=== PATIENT | male | born 1950 | race Caucasian/White ===

== ENCOUNTER 2016-04-20 14:02 | Inpatient (IN) | payer MEDICARE ==
--- NOTE | ~2016-04-20 | CR63 ---
[facility] A Service of [facility] & [facility] RADIOLOGY TEXT RESULTS PATIENT: REZA DIAS LOCATION: [facility] : 50 UNIT #: [id number] AGE: [address]: Jacinta Mckeon MD SEX: M ORDER DR: [id number] [facility] [address] [facility]. [place], [place] [address] [id number] MR#: [id number] Acc #: [id number] NAME: REZA DIAS : 1950 SEX: M STUDY DATE/TIME: 04/20/2016 13:10 UNIT: [facility] ROOM: STUDY DESCRIPTION: CR Chest 2 View Attending Physician: Jacinta Mckeon M.D. Ordering Physician: Miguel Barrios M.D. Primary Care Physician: Elena Graf M.D. MEDICAL IMAGING REPORT This report is preliminary unless electronic signature is present EXAM PA and lateral chest performed on 04/20/2016 HISTORY 65-year-old male with shortness of breath. Patient's symptoms started 3 days ago. FINDINGS The heart is not enlarged. The lungs are clear. No pleural effusion or pneumothorax is identified. In comparison to the previous exam of 04/04/2010 there has been no change. IMPRESSION No acute pulmonary disease. Dictated by... Rubin Manning M.D. THIS IS AN ELECTRONICALLY VERIFIED REPORT Rubin Manning M.D. at 04/20/2016 4:52 PM Brendan TD: 04/20/2016 15:45 JOB #: [id number] MEDICAL IMAGING REPORT COPY
--- NOTE | ~2016-04-20 | OR ---
Unit #: [id number] #: [id number] Patient: REZA DIAS [id number] [address] [place], [place] [address] [id number] I MR#: [id number] NAME: REZA DIAS ROOM: 212 Date of Procedure: 04/22/2016 Admission Date: 04/20/2016 Surgeon: Emile Dobbs Jr., M.D. : 1950 Attending Physician: Bobo Chavez M.D. Primary Care Physician: Elena Grfa M.D. OPERATIVE REPORT INDICATIONS FOR PROCEDURE The patient is a 65-year-old white male, who was admitted with anemia and complaining of some shortness of air. He has had a known past history for gastric ulcer disease. He has had several gastric procedures in the past including a partial gastrectomy and vagotomy. He had a scope approximately year ago, which revealed a marginal ulcer and was treated medically and seemed to do well up until now. He has had some intermittent spells of nausea, vomiting, and belching with reflux symptoms. He is brought to the endoscopy suite at this time after prep on the floor for EGD colonoscopy. PREOPERATIVE DIAGNOSIS Anemia secondary to gastrointestinal bleeding with possible recurrent marginal ulcer. POSTOPERATIVE DIAGNOSES On upper endoscopy, the patient was noted to have 1+ distal esophagitis without stenosis, mild gastritis with a marginal ulcer at the gastrojejunostomy without obstruction, and retained food particles in the stomach indicating gastroparesis or possibly some partial obstruction related to his ulcer. Colonoscopy to the cecum revealed evidence of diverticulosis of the left colon, but no other abnormalities. ANESTHESIA Conscious sedation with 12 mg of Versed being used as well as 125 mcg of fentanyl IV slowly during the procedure. PROCEDURE PERFORMED Flexible fiberoptic esophagogastrojejunoscopy with colonoscopy to the cecum. DESCRIPTION OF PROCEDURE The patient was positioned in Campbell position with left side down. After being given IV Versed and fentanyl with a total of 12 mg Versed and 125 mcg of fentanyl being given. The Olympus XQ scope was passed through the proximal esophagus. Entire esophagus was examined. Proximal two-thirds appeared normal in the area of the distal esophagus. There were some small ulcerations compatible with 1+ ulcerative distal esophagitis without stenosis. The scope was advanced through the GE junction into the cardia, and down the area of his gastrojejunostomy. There was retained food particles within the proximal portion of the stomach and some mild gastritis and evidence of a persistent marginal ulcer without significant Unit #: [id number] #: [id number] Patient: REZA DIAS obstruction though of his gastrojejunostomy. The scope was then advanced down distally in the jejunum, where there was no evidence of any abnormalities. The scope was then slowly removed. The patient repositioned for colonoscopy. Digital rectal examination was performed, which revealed no palpable mass or tenderness. No blood or stool within the rectal ampulla. Prostate was 2+ enlarged and nontender and not nodular. The Olympus colonoscope was advanced through the anal canal up the rectum and retroflexed down to the area of the anorectal region. There was no evidence of any fissures. No significant internal hemorrhoids. The scope was then straightened and advanced up the rectosigmoid, in the sigmoid and descending colon areas, around the splenic flexure and the transverse colon, around the hepatic flexure and ascending colon, down in the area of the cecum. The light from the tip of the scope could be seen transilluminating through right lower quadrant abdominal wall area. Multiple attempts advancing the scope up the distal ileum were unsuccessful. The scope was slowly removed. There were no tumors, polyps, cancer, or AVMs. No evidence of any colitis or diverticulitis. There were multiple diverticula in the left colon. There was no evidence of any narrowing or obstruction and no bleeding sources except the diverticulosis. The scope was removed. The patient tolerated the procedure well and discharged back to floor in satisfactory condition. Dictated by... Emile Dobbs Jr., M.D. JMB/barbra TD: 04/22/2016 14:30 JOB #: [id number] CC: . OPERATIVE REPORT X Emile Dobbs MD X PROCEDURE OPERATIVE NOTE
--- NOTE | ~2016-04-20 | US38 ---
[facility] A Service of [facility] / [facility] RADIOLOGY TEXT RESULTS PATIENT: REZA DIAS LOCATION: [facility] : 50 UNIT #: [id number] AGE: [address]: Deana Toth MD SEX: M ORDER DR: [id number] [facility] [address] [facility]. [place], [place] [address] [id number] I MR#: [id number] Acc #: [id number] NAME: REZA DIAS : 1950 SEX: M STUDY DATE/TIME: 04/23/2016 8:41 UNIT: [facility] ROOM: [facility] STUDY DESCRIPTION: US Carotid W/Doppler Unilatera Attending Physician: Deana Toth M.D. Ordering Physician: Vipin Cancino M.D. Primary Care Physician: Elena Graf M.D. MEDICAL IMAGING REPORT This report is preliminary unless electronic signature is present EXAM Left carotid duplex scan. DATE OF EXAMINATION 05/21/2016 HISTORY Left carotid bruit. FINDINGS The left common carotid artery has minimal plaque. There is heterogeneous dense plaque in the left carotid bulb which extends up into the proximal internal and external carotid arteries. Peak systolic velocity in the proximal left internal carotid artery is 198 cm/sec with an end-diastolic velocity of 24 cm/sec. The ICA/CCA ratio on the left is 1.5. Peak systolic velocity in the left external carotid artery is 154 cm/sec. The left vertebral artery is patent with antegrade flow. IMPRESSION Moderate stenosis (50% to 69%) of the left internal carotid artery. Significant stenosis of the left external carotid artery. Patent left vertebral artery with antegrade flow. Dictated by... Guille Concepcion M.D. THIS IS AN ELECTRONICALLY VERIFIED REPORT Guille Concepcion M.D. at 04/26/2016 7:22 AM SBS/speedyw [facility] A Service of [facility] / [facility] RADIOLOGY TEXT RESULTS PATIENT: REZA DIAS LOCATION: [place] [address] : 50 UNIT #: [id number] AGE: [address]: Deana Toth MD SEX: M ORDER DR: TD: 04/23/2016 13:51 JOB #: [id number] MEDICAL IMAGING REPORT COPY
--- NOTE | ~2016-04-20 | CO ---
Unit #: [id number] #: [id number] Patient: REZA DIAS [id number] [address] [place], [place] [address] [id number] I MR#: [id number] NAME: REZA DIAS ROOM: 212 Age: 65 Sex: M Admission Date: 04/20/2016 : 1950 Attending Physician: Deana Toth M.D. Primary Care Physician: Elena Graf M.D. Consultation Date: 04/22/2016 CONSULTATION REPORT REASON FOR CONSULTATION Bradycardia. HISTORY OF PRESENT ILLNESS This is a 65-year-old white male, who was admitted with complaint of shortness of breath. He states a week and a half ago, he was outside cleaning his yard. He felt weak at that time. Two days later, he noted congestion. Prior to his admission, he has dyspnea that occurred at rest, it is worse on exertion. He became so dyspneic that he had to "go outside to breathe." He denies paroxysmal nocturnal dyspnea or orthopnea. He reports no leg edema. He came to the emergency room for evaluation, where he was found to be anemic with hemoglobin of 7.9. He has received 2 units of packed red blood cells. EGD showed severe esophagitis. He was bradycardic with his heart rate in the 50s. He had no symptoms of angina, syncope, or near syncope. He had a similar episode 6 years ago, where he was found to be anemic and had similar symptoms. His dyspnea has resolved. He denies a history of hypertension, hyperlipidemia, or diabetes. Risk factors for ischemic heart disease includes nicotine abuse in the remote past and family history of premature coronary artery disease. He has had no prior cardiac workup or testing. PAST MEDICAL HISTORY 1. GERD. 2. Peptic ulcer disease, status post partial gastrectomy. 3. Anemia. 4. Former smoker. PAST SURGICAL HISTORY 1. Partial gastrectomy. 2. Hydrocele repair. 3. Abdominal hernia repair. 4. Ventral hernia repair. 5. Cholecystectomy. SOCIAL HISTORY The patient is a retired welder metal fab and . He states he is reasonably active. He quit smoking at least 30 years ago. He denies illicit drug or alcohol use. FAMILY HISTORY Positive for coronary artery disease in his father, who had open heart surgery in his 50s. Unit #: [id number] #: [id number] Patient: REZA DIAS ALLERGIES No known drug allergies. HOME MEDICATIONS No current medications. REVIEW OF SYSTEMS CONSTITUTIONAL: Negative for fever or chills. Reports weakness, but no fatigue. Denies weight gain or weight loss. HEENT: No headache, hearing or vision changes, difficulty with swallowing. No dizziness. CARDIOVASCULAR: Has no symptoms of angina. Denies palpitations. No paroxysmal nocturnal dyspnea or orthopnea. No syncope or near syncope. RESPIRATORY: Positive for dyspnea at rest, it is worse on exertion. No cough or hemoptysis. GASTROINTESTINAL: No abdominal pain, nausea, or vomiting. No constipation or melena. EXTREMITIES: Negative for lower extremity edema. PHYSICAL EXAMINATION VITAL SIGNS: Blood pressure 105/64, heart rate 50, temperature 97.9. BMI 20. GENERAL: This is a tall thin-framed 65-year-old white male, who is in no acute distress. NEUROLOGIC: He is awake, alert, and oriented without focal weaknesses. NECK: Trachea is midline. No thyromegaly or lymphadenopathy. No jugular venous distention. Noted for left carotid bruit. There is decrease in the carotid upstrokes. HEART: S1, S2 with no S3 or S4. There is a grade 2/6 systolic murmur that peaks beyond the mid systole and radiates to the left carotid. No diastolic murmur. LUNGS: Clear to auscultation without rales, rhonchi, or wheezes. ABDOMEN: Soft and nontender with bowel sounds are present. EXTREMITIES: Without leg edema. SKIN: Warm and dry. DIAGNOSTIC STUDIES LABORATORY RESULTS: Hemoglobin 8.6, hematocrit 29.1, platelet count 254, white count 4.0. Sodium 132, potassium 3.7, BUN 9, creatinine 0.8, glucose of 97. TSH 0.27. Troponin less than 0.05. IMAGING STUDIES: Chest x-ray shows no active disease. CARDIOVASCULAR STUDIES: EKG; sinus bradycardia with a rate of 55 beats per minute, otherwise normal. IMPRESSION 1. Anemia, status post blood transfusion x2. 2. Status post esophagogastroduodenoscopy with resultant severe esophagitis. 3. Status post colonoscopy with diverticulosis. No active bleed. 4. Asymptomatic sinus bradycardia. 5. Probable bicuspid aortic valve with zvmfjgus-[id number]-wpifmi stenosis. 6. Left carotid bruit. PLAN 1. Cardiology was consulted for sinus bradycardia. The patient has no high-grade AV block. Blood pressure is currently stable. May have sick Unit #: [id number] #: [id number] Patient: REZA DIAS sinus syndrome with relative sinus bradycardia despite chronic anemia. 2. Await echocardiogram results to evaluate systolic murmur. 3. May need iron supplement. 4. Ultrasound of the carotid to evaluate left carotid bruit. 5. We will follow the patient with you. Thank you for allowing us to assist in this patient's care. Dictated by... Luis Higgins A.P.R.N. for Delfino Santos/barbra TD: 04/27/2016 19:33 JOB #: [id number] CONSULTATION REPORT X Luis Higgins APRN X CONSULTATION REPORT
--- NOTE | ~2016-04-20 | DS ---
Unit #: [id number] #: [id number] Patient: REZA DIAS [id number] [address] [address] [id number] I MR#: [id number] NAME: REZA DIAS ROOM: 212 Age: 65 Sex: M Admission Date: 04/20/2016 : 1950 Discharge Date: 04/23/2016 Attending Physician: Deana Toth M.D. Primary Care Physician: Elena Graf M.D. DISCHARGE SUMMARY PRINCIPAL DIAGNOSES 1. Acute blood loss anemia secondary to number two now status post two units of packed RBCs. 2. Marginal ulcer of the stomach. 3. Chronic iron deficiency anemia. 4. Bradycardia, asymptomatic. 5. Hyperlipidemia, newly diagnosed. 6. Aortic murmur with pending two-dimensional echocardiogram. 7. Esophagitis and gastritis. 8. Mild leukopenia. 9. Left-sided carotid bruit with pending carotid ultrasound. 10. Mild vitamin B12 deficiency with vitamin B12 level of 360. CONSULTANTS 1. Dr. Cancino, Cardiology. 2. Dr. Dobbs, General Surgery. PROCEDURES 1. EGD and colonoscopy on April 22, 2016. EGD revealed 1+ distal esophagitis, mild gastritis with marginal ulcer at the gastrojejunostomy region. Retained food particles were noted. On colonoscopy, please note there was diverticulosis of the left colon. 2. Two-dimensional echocardiogram which was completed but results currently pending. 3. Bilateral carotid ultrasound, again, also with results pending. 4. Chest x-ray on April 20, 2016, which was negative. CLINICAL HISTORY AND HOSPITAL COURSE Mr. Dias is a very nice,65-year-old male with a history of significant gastric ulcers status post gastrectomy, who presents to the emergency department due to increasing shortness of breath. He was found to have a hemoglobin of 7.9 in the emergency department. The patient received two units of packed RBCs and had significant improvement in hemoglobin up to 8.7 following administration. LSA was consulted and the patient underwent EGD and colonoscopy. EGD and colon results as noted above. He has been placed on oral PPI therapy in addition to Carafate. Hemoglobin has remained stable. He does have some iron deficiency anemia secondary to bleeding and has been placed on ferrous sulfate in addition to Venofer. The patient did have some bradycardia prior to procedure with heart rates in the mid to high fifties. However, during procedure, heart rate dropped into the forties. For this reason, Cardiology was consulted. TSH is normal. On examination, however, he does have an aortic murmur and a Unit #: [id number] #: [id number] Patient: REZA DIAS carotid bruit for which imaging studies above have been done but results are currently pending. The plan is for him to follow up with Cardiology as an outpatient and avoid beta grisel therapy. The patient was found to have hyperlipidemia upon workup with Cardiology and placed on statin therapy. The patient's overall conditions are stable. He will be discharged home later today. DISCHARGE CONDITION Stable. DISCHARGE STATUS Discharged to home. DISCHARGE MEDICATIONS 1. Lipitor 40 mg each evening. 2. Protonix 40 mg p.o. b.i.d. with one refill given. 3. Carafate one gram p.o. t.i.d. with meals and one at bedtime with one refill given. 4. Ferrous gluconate 324 mg p.o. b.i.d. with one refill given. 5. Vitamin B12 1,000 mcg p.o. daily. DISCHARGE INSTRUCTIONS The patient was instructed to follow a Heart Healthy diet. He can increase his activity as tolerated. FOLLOWUP The patient will follow up with Dr. Cancino per their recommendations. He should follow up with Dr. Graf in two weeks and Dr. Dobbs in approximately four weeks. Time spent on discharge-32 minutes. Dictated by... Deana Toth M.D. IAN/vern TD: 04/24/2016 12:48 JOB #: [id number] DISCHARGE SUMMARY X Deana Toth MD X DISCHARGE SUMMARY
--- NOTE | ~2016-04-20 | EKG ---
PATIENT: REZA DIAS UNIT #: [id number] Ventricular Rate: 55 BPM Atrial Rate: 55 BPM P-R Interval: 156 ms QRS Duration: 86 ms Q-T Interval: 442 ms QTC Calculation(Bezet): 422 ms P [place]: 76 degrees Calculated R [place]: 41 degrees Calculated T [place]: 13 degrees Diagnosis Line: Sinus bradycardia Diagnosis Line: Otherwise normal ECG Diagnosis Line: When compared with ECG of 20-APR-2016 12:47, Diagnosis Line: No significant change was found Diagnosis Line: Confirmed by SPENSER MANNING MD ([id number]) on 04/23/2016 Diagnosis Line: 7:04:03 AM INTERPRETING MD: NIGEL ESPINOZA
--- NOTE | ~2016-04-20 | EKG ---
PATIENT: REZA DIAS UNIT #: [id number] Ventricular Rate: 67 BPM Atrial Rate: 67 BPM P-R Interval: 144 ms QRS Duration: 82 ms Q-T Interval: 418 ms QTC Calculation(Bezet): 441 ms P [place]: 81 degrees Calculated R [place]: 64 degrees Calculated T [place]: 44 degrees Diagnosis Line: Normal sinus rhythm Diagnosis Line: Normal ECG Diagnosis Line: No previous ECGs available Diagnosis Line: Confirmed by SPENSER MANNING MD ([id number]) on 04/20/2016 Diagnosis Line: 5:32:44 PM INTERPRETING MD: NIGEL ESPINOZA
--- NOTE | ~2016-04-20 | HP ---
Unit #: [id number] #: [id number] Patient: REZA DIAS [id number] [address] [address] [id number] I MR#: [id number] NAME: REZA DIAS ROOM: [address] Age: 65 Sex: M Admission Date: 04/20/2016 : 1950 Attending Physician: Bobo Chavez M.D. Primary Care Physician: Elena Graf M.D. HISTORY AND PHYSICAL CHIEF COMPLAINT Shortness of breath. HISTORY OF PRESENT ILLNESS The patient is a 65-year-old male with the history of peptic ulcer disease, gastroesophageal reflux disease, presented to the emergency room with shortness of breath for the last two to three days. The patient stated that he is having difficulty with exertional dyspnea and denies any fever, chills, nausea or vomiting. The patient has not been on any medications. 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 The patient was found to have a hemoglobin of 7.9 and a hematocrit of 27.4. The patient is being admitted for the above reasons. The patient denies any recent new medications or taking any NSAIDs. The patient denies any black dark-colored stools. PAST MEDICAL HISTORY 1. History of gastroesophageal reflux disease. 2. Peptic ulcer disease. PAST SURGICAL HISTORY 1. History of abdominal hernia. 2. Colonoscopy in 2009. 3. EGD in 2009. 4. Partial gastrectomy for peptic ulcer. 5. Ventral hernia repair. HOME MEDICATIONS None. ALLERGIES No known drug allergies. SOCIAL HISTORY Denies history of smoking cigarettes, drinking alcohol or illicit drug abuse. FAMILY HISTORY Reviewed and none. REVIEW OF SYSTEMS A 14-point review of systems performed and only pertinent positive findings are described above, remaining are negative. Unit #: [id number] #: [id number] Patient: REZA DIAS PHYSICAL EXAMINATION VITAL SIGNS: Temperature 98, pulse 92, respiratory rate 16, blood pressure 142/73, saturating 100% at room air. GENERAL: Patient is lying on the bed not in acute distress. HEENT: Atraumatic, normocephalic. Pupils equal, round, and reactive to light and accommodation. Positive for pallor. NECK: Supple. No JVD. LUNGS: Decreased air entry at the bases. HEART: Regular rate and rhythm. ABDOMEN: Soft, positive bowel sounds. EXTREMITIES: No cyanosis, no clubbing. NEUROLOGIC: Alert, awake, oriented. No gross focal motor deficit. DIAGNOSTIC STUDIES LABORATORY: WBC 5.9, hemoglobin 7.9, hematocrit 27.4, platelets 308. Glucose 100, BUN 9, creatinine 0.7, sodium 140, potassium 3.5, chloride 105, bicarb 24, calcium 9.3, total protein 7.4, AST 18, ALT 14, alkaline phosphatase 81. IMAGING: Chest x-ray is negative. CARDIOVASCULAR: EKG shows normal sinus rhythm at a rate of 67 beats per minute. ASSESSMENT AND PLAN 1. Anemia. 2. Shortness of breath. 3. History of peptic ulcer disease. PLAN 1. Admit patient as inpatient. 2. Continue with PPI, Protonix 40 mg b.i.d. 3. Will have LSA Dr. Dobbs consult as the patient is known to him. 4. Type and cross 2 units of PRBC. 5. Repeat the labs again in the morning. 6. Further recommendations will follow as more lab results become available. Dictated by Delfino Salinas TD: 04/20/2016 18:28 JOB #: [id number] Unit #: [id number] #: [id number] Patient: REZA DIAS HISTORY AND PHYSICAL X X HISTORY AND PHYSICAL
[~2016-04-20 14:02] MED LIST: CARAFATE1 G PO; LORTAB 10-5001 EACH PO; NEXIUM PO; PRINIVIL10 MG PO; PROTONIX PO; SIMVASTATIN20 MG PO; TRAMADOL HCL50 M1 PO
[2016-04-20 14:53] LABS: ALBUMIN SERUM 4.4 g/dL (3.5-5.0); ALKALINE PHOSPHATASE 81 U/L (32-92); ALT (SGPT) 14 U/L (10-40); AST (SGOT) 18 U/L (10-42); BILIRUBIN, DIRECT <0.1 mg/dL (0.0-0.2); BILIRUBIN,INDIRECT 0.3 mg/dL (0.0-0.9); BILIRUBIN,TOTAL 0.4 mg/dL (0.2-2.0); BLOOD UREA NITROGEN 9 mg/dL (9-23); BUN/CREATININE RATIO 12.85; CALCIUM SERUM 9.3 mg/dL (8.4-10.2); CARBON DIOXIDE 24 mmol/L (22-31); CHLORIDE 105 mmol/L (100-111); CREATININE SERUM 0.7 mg/dL (0.6-1.4); GLOM FILT RATE Estimated ABOVE60 mL/min (>60); GLUCOSE FASTING 100 mg/dL (70-110); POTASSIUM 3.5 mmol/L (3.5-5.1); PROTEIN TOTAL SERUM 7.4 g/dL (6.0-8.3); SODIUM 140 mmol/L (135-145)
[2016-04-20 14:54] LABS: BASOPHIL# 0.1 X10e3 (0-0.3); EOSINOPHIL% 0.4 % (0.0-7.0); HEMATOCRIT 27.4 % (38.0-50.0); HEMOGLOBIN 7.9 gm/dL (13.0-16.0); LYMPHOCYTE# 2.2 X10e3 (1.0-3.5); LYMPHOCYTE% 37.6 % (17.0-45.0); MEAN CORPUSCULAR HEMOGLOBIN 17.9 PG (28-34); MEAN CORPUSCULAR HGB CONC 28.9 g/dL (30-36); MEAN PLATELET VOLUME 7.4 FL (6.5-11.5); MONOCYTE# 0.3 X10e3 (0-1.0); MONOCYTE% 4.9 % (3.0-12.0); NEUTROPHIL# 3.3 X10e3 (1.5-7.1); NEUTROPHIL% 56.1 % (40-75); PLATELET COUNT 308 X10e3 (140-420); RED BLOOD COUNT 4.41 X10e (3.90-5.60); RED CELL DISTRIBUTION WIDTH 18.2 % (11.0-15.5); WHITE BLOOD COUNT 5.9 X10e3 (4.0-10.5)
[2016-04-20 14:57] LABS: POC - CKMB <1.0 ng/mL (0.0-7.9); POC - TROPONIN <0.05 ng/mL (<=0.05)
[2016-04-20 14:57] LABS: DIFF IND YES
[2016-04-20 15:15] LABS: INFLUENZA A NEG (NEG); INFLUENZA B NEG (NEG)
[2016-04-20 15:44] LABS: PLATELET ESTIMATE NORMAL (NORMAL)
[2016-04-20 15:45] LABS: ANISOCYTOSIS SL
[2016-04-20 16:19] LABS: POC - CKMB <1.0 ng/mL (0.0-7.9); POC - TROPONIN <0.05 ng/mL (<=0.05)
[2016-04-21 08:30] LABS: DIFF IND NO; EOSINOPHIL% 0.8 % (0.0-7.0); HEMATOCRIT 30.8 % (38.0-50.0); HEMOGLOBIN 8.9 gm/dL (13.0-16.0); LYMPHOCYTE# 1.3 X10e3 (1.0-3.5); LYMPHOCYTE% 27.2 % (17.0-45.0); MEAN CELL VOLUME 65.6 FL (83-96); MEAN CORPUSCULAR HEMOGLOBIN 19.1 PG (28-34); MEAN CORPUSCULAR HGB CONC 29.1 g/dL (30-36); MEAN PLATELET VOLUME 7.3 FL (6.5-11.5); MONOCYTE# 0.3 X10e3 (0-1.0); MONOCYTE% 5.6 % (3.0-12.0); NEUTROPHIL# 3.2 X10e3 (1.5-7.1); NEUTROPHIL% 65.4 % (40-75); PLATELET COUNT 255 X10e3 (140-420); RED BLOOD COUNT 4.69 X10e (3.90-5.60); RED CELL DISTRIBUTION WIDTH 21.6 % (11.0-15.5)
[2016-04-21 08:59] LABS: BLOOD UREA NITROGEN 9 mg/dL (9-23); BUN/CREATININE RATIO 11.25; CALCIUM SERUM 8.8 mg/dL (8.4-10.2); CARBON DIOXIDE 27 mmol/L (22-31); CHLORIDE 102 mmol/L (100-111); CREATININE SERUM 0.8 mg/dL (0.6-1.4); GLOM FILT RATE Estimated ABOVE60 mL/min (>60); GLUCOSE FASTING 97 mg/dL (70-110); POTASSIUM 3.7 mmol/L (3.5-5.1); SODIUM 137 mmol/L (135-145)
[2016-04-21 09:38] LABS: PARTIAL THROMBOPLASTIN TIME 25.4 SECONDS (23.5-31.3)
[2016-04-21 12:00] LABS: IRON SERUM 49 ug/dL (45-182); TOTAL IRON BINDING CAPACITY 437 ug/dL (252-460); TRANSFERRIN 312 mg/dL (180-329); TRANSFERRIN SATURATION 11 % (20-50)
[2016-04-22 05:12] LABS: HEMATOCRIT 29.1 % (38.0-50.0); HEMOGLOBIN 8.6 gm/dL (13.0-16.0); MEAN CELL VOLUME 65.9 FL (83-96); MEAN CORPUSCULAR HEMOGLOBIN 19.5 PG (28-34); MEAN CORPUSCULAR HGB CONC 29.5 g/dL (30-36); MEAN PLATELET VOLUME 7.5 FL (6.5-11.5); RED BLOOD COUNT 4.42 X10e (3.90-5.60); RED CELL DISTRIBUTION WIDTH 21.6 % (11.0-15.5)
[2016-04-22 16:11] LABS: FREE T3 3.1 pg/mL (2.5-3.9)
[2016-04-22 16:12] LABS: FREE THYROXIN (T4) 0.73 ng/dL (0.58-1.64)
[2016-04-23 05:50] LABS: HEMATOCRIT 28.8 % (38.0-50.0); HEMOGLOBIN 8.7 gm/dL (13.0-16.0); MEAN CELL VOLUME 65.6 FL (83-96); MEAN CORPUSCULAR HEMOGLOBIN 19.9 PG (28-34); MEAN CORPUSCULAR HGB CONC 30.3 g/dL (30-36); MEAN PLATELET VOLUME 7.6 FL (6.5-11.5); RED BLOOD COUNT 4.38 X10e (3.90-5.60); RED CELL DISTRIBUTION WIDTH 22.2 % (11.0-15.5); WHITE BLOOD COUNT 3.8 X10e3 (4.0-10.5)
[2016-04-23 06:29] LABS: CHOLESTEROL 262 mg/dL (0-200); HDL CHOLESTEROL 39 mg/dL (29-75); LDL/HDL RATIO 5 RATIO (0-4); TRIGLYCERIDES 102 mg/dL (10-160)
[2016-04-23 06:31] LABS: LDL CHOLESTEROL 203 mg/dL (-130)
[2016-04-23] MEDS ORDERED: LIPITOR40 MG PO (18:35)
[2016-04-23] MEDS ORDERED: IRON236 MG PO (18:36)
[2016-04-23] MEDS ORDERED: CARAFATE1 G PO (18:37)
[2016-04-23] MEDS ORDERED: PROTONIX PO (18:38)
[2016-04-23] MEDS ORDERED: CYANOCOBALAM1000 MCG PO (18:39)
== END 2016-04-23 20:24 | disposition home or self-care (01) | DRG 378 ==
LOC: CED 14:02 → CEDOF 17:14 → C5C 20:14 → C2A 04-21 13:06
PROVIDERS: Emergency Medicine; Internal Medicine; Internal Medicine Cardiovascular Disease; Student in an Organized Health Care Education/Training Program; Surgery
PROC: 30233N1 Transfusion of Nonautologous Red Blood Cells into Peripheral Vein, Percutaneous Approach (ICD-10-PCS; principal; 2016-04-20)
PROC: 3E0234Z Introduction of Serum, Toxoid and Vaccine into Muscle, Percutaneous Approach (ICD-10-PCS; 2016-04-20)
PROC: 0DJ08ZZ Inspection of Upper Intestinal Tract, Via Natural or Artificial Opening Endoscopic (ICD-10-PCS; 2016-04-22)
PROC: 0DJD8ZZ Inspection of Lower Intestinal Tract, Via Natural or Artificial Opening Endoscopic (ICD-10-PCS; 2016-04-22)
PROC: B246YZZ Ultrasonography of Right and Left Heart using Other Contrast (ICD-10-PCS; 2016-04-23)
DX: K28.4 Chronic or unspecified gastrojejunal ulcer with hemorrhage (principal); D62 Acute posthemorrhagic anemia; K31.84 Gastroparesis; R00.1 Bradycardia, unspecified; K22.10 Ulcer of esophagus without bleeding; D50.9 Iron deficiency anemia, unspecified; K29.70 Gastritis, unspecified, without bleeding; R09.89 Other specified symptoms and signs involving the circulatory and respiratory systems; E53.8 Deficiency of other specified B group vitamins; E78.5 Hyperlipidemia, unspecified; Z23 Encounter for immunization; K57.90 Diverticulosis of intestine, part unspecified, without perforation or abscess without bleeding
CPT/HCPCS: 36415; 71020; 80048; 80061; 80076; 82553; 82607; 83540; 83550; 84439; 84443; 84481; 84484; 85025; 85027; 85610; 85730; 86850; 86900; 86901; 86923; 87804; 90732; 93005; 93306; 93882; 94640; 99285; C9113; G0009; J2250; J2765; J2916; J3010; J3420; P9016

== ENCOUNTER → 2016-06-12 | Outpatient (CLI) | payer MEDICARE ==
[~2016-06-12] MED LIST changes: +CYANOCOBALAM1000 MCG PO; +IRON236 MG PO; +LIPITOR40 MG PO
--- NOTE | ~2016-06-12 | TH ---
Unit #: [id number] #: [id number] Patient: REZA DIAS [id number] [facility]. [address] [address] [id number] O MR#: [id number] NAME: REZA DIAS : 1950 SEX: M STUDY DATE/TIME: 06/12/2016 UNIT: [facility] ROOM: STUDY DESCRIPTION: Imaging Study Attending Physician: Vipin Cancino M.D. Referring Physician: Vipin Cancino M.D. Primary Care Physician: Janna Nicole Aprn CARDIOLOGY REPORT EXAM Exercise Cardiolite stress test nuclear portion PROCEDURE Using [id number] Cardiolite rest and stress SPECT images were obtained. Multiple SPECT images were obtained in various views including horizontal and vertical long axis and short axis views of the left ventricle. Images were obtained by gated SPECT method. Patient was administered 12.0 mCi of Cardiolite at rest. Patient was administered 33.2 mCi of Cardiolite at peak exercise. Total exercise time is six minutes. On the stress images there is normal perfusion noted. The rest images show normal perfusion. Comparing rest and stress images there is no stress-induced ischemia noted. The left ventricular ejection fraction is calculated to be 52%. There is no focal wall motion abnormality seen. CONCLUSION 1. No stress-induced ischemia noted. 2. The left ventricular ejection fraction is calculated to be 52%. 3. There is no focal wall motion abnormality seen. 4. Normal nuclear portion of the stress test. 5. It must be noted that the patient had chest pain during the exercise portion with nonspecific ST/T wave changes. Clinical correlation is requested. Dictated by... Delfino Gastelum TD: 06/12/2016 22:55 JOB #: [id number] Unit #: [id number] #: [id number] Patient: REZA DIAS CARDIOLOGY REPORT Page 1 of 1 X Benita Jacobson MD <ELECTRONICALLY SIGNED> 09/15/16 5721 CARDIOLOGY REPORT
--- NOTE | ~2016-06-12 | ST ---
Unit #: [id number] #: [id number] Patient: REZA DIAS [id number] [facility]. [address] [address] [id number] O MR#: [id number] NAME: REZA DIAS : 1950 SEX: M STUDY DATE/TIME: 06/12/2016 UNIT: [facility] ROOM: STUDY DESCRIPTION: Exercise stress test Attending Physician: Vipin Cancino M.D. Referring Physician: Vipin Cancino M.D. Primary Care Physician: Janna Nicole Aprn CARDIOLOGY REPORT PROCEDURE PERFORMED EKG portion of exercise Cardiolite stress test. REASON FOR EXAM History of heart murmur. DISCUSSION Baseline EKG reveals sinus bradycardia with a ventricular rate of 56 beats per minute. No acute ST or T wave changes noted. The patient exercised on the treadmill according to the Josh protocol for 6 minutes achieving a workload of 7 METS. The maximal heart rate was 150 beats per minute, which represents 96% of the maximal age-predicted heart rate. The maximal blood pressure was 171/86 mmHg. There were no complaints of chest pain. There were occasional premature atrial complexes noted. The patient had ST depression in the anterolateral leads with upsloping of the T waves. Again, there were no complaints of chest pain. The test was stopped due to protocol completion. IMPRESSION 1. Nondiagnostic EKG portion of exercise Cardiolite stress test. 2. There were no complaints of chest pain. 3. There were occasional premature atrial complexes noted. 4. There was [address] depression noted with upsloping T waves in the anterolateral leads. ST depression resolved in recovery. 5. The patient was held in the nuclear lab for review of pictures. Preliminary images revealed no acute findings. He was discharged home, and final images are under review. 6. Images are pending. Dictated by... Kimberlyn Astudillo APRN for Delfino Gastelum/julien TD: 06/13/2016 15:07 JOB #: [id number] Unit #: [id number] #: [id number] Patient: REZA DIAS CARDIOLOGY REPORT Page 1 of 1 X CARDIOLOGY REPORT
== END | disposition home or self-care (01) ==
LOC: CNUC 08:07
DX: I35.0 Nonrheumatic aortic (valve) stenosis (principal); I49.1 Atrial premature depolarization; E78.5 Hyperlipidemia, unspecified; R94.39 Abnormal result of other cardiovascular function study; R07.9 Chest pain, unspecified
CPT/HCPCS: 78452; 93017; A9500